=== PATIENT | male | born 1960 | race Caucasian/White ===

== ENCOUNTER 2023-02-19 11:04 | Outpatient (AMB) | payer OTHER, SELFPAY ==
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
[2023-02-19 11:12] VITALS: BP 122/77; PULSE 93; O2SAT 97; BMI 29.5
== END 2023-02-19 12:53 | disposition home or self-care (01) ==
PROVIDERS: PCP Nurse Practitioner Family; Visit Provider Internal Medicine
DX: B20 Human immunodeficiency virus [HIV] disease (principal)
CPT/HCPCS: 99213

== ENCOUNTER → 2023-02-19 11:04 | Outpatient (BNVA) | payer OTHER, SELFPAY | PROVIDERS: Visit Provider Internal Medicine | DX: B20 Human immunodeficiency virus [HIV] disease (principal) | CPT/HCPCS: 99212 ==

== ENCOUNTER 2023-03-12 15:34 | Outpatient (REF) | payer MEDICAID, SELFPAY ==
[2023-03-12 16:35] LABS: MANUAL DIFF FLAG NO
[2023-03-12 16:42] LABS: Basophils Percent Auto 0.5 % (0-2); Eosinophils Absolute Auto 0.3 X10*3/uL (0.0-0.4); Eosinophils Percent Auto 3.7 % (0-4); Hematocrit 41.9 % (42.0-52.0); Hemoglobin 14.1 g/dl (14.0-18.0); Imm Gran Abs Auto 0.03 X10*3/uL (0.00-0.03); Imm Gran Pct Auto 0.4 % (0.0-0.4); Lymphocytes Percent Auto 27.3 % (20-40); Mean Corpuscular HGB Conc 33.7 g/dl (31.0-36.0); Mean Corpuscular Hemoglobin 30.2 pg (27.0-33.0); Mean Corpuscular Volume 89.7 fL (80.0-98.0); Mean Platelet Volume 10.3 fL (9.4-12.4); Monocytes Absolute Auto 0.6 X10*3/uL (0.1-1.2); Monocytes Percent Auto 8.1 % (2-11); NRBC Pct Auto 0.5 /100WBC (0.0-0.2); Neutrophils Absolute Auto 4.4 x10*3/uL (2.0-8.3); Platelet Count 250 X10*3/uL (160-400); Red Blood Count 4.67 X10*6/uL (4.60-5.80); Red Cell Distribution Width 13.4 % (11.0-16.0); White Blood Count 7.3 X10*3/uL (4.8-10.8)
[2023-03-12 17:11] LABS: Alanine Aminotransferase 35 U/L (0-40); Albumin Level 4.4 g/dL (3.5-5.0); Alkaline Phosphatase 62 U/L (39-117); Anion Gap 11 (12-20); Aspartate Amino Transferase 24 U/L (5-37); Bilirubin Total 0.3 mg/dL (0.0-1.0); Blood Urea Nitrogen 11 mg/dL (9-16); Calcium 9.3 mg/dL (8.4-10.2); Carbon Dioxide 23 mmol/L (22-29); Chloride 107 mmol/L (96-108); Estimated Glomerular Filt Rate > 60; Glucose Random 88 mg/dL (60-115); Potassium 3.9 mmol/L (3.3-5.1); Sodium 137 mmol/L (135-145); Total Protein 7.2 g/dL (6.5-8.0)
[2023-03-12 18:13] LABS: CT PCR NOT DETECTED (Not Detect.); NG PCR NOT DETECTED (Not Detect.)
[2023-03-13 04:23] LABS: Hepatitis A Antibody IgG REACTIVE (Nonreactive); ~Hepatitis A Antibody IgG 13.39 S/CO (0.00-0.99)
[2023-03-13 04:28] LABS: HBS Num1 178.03 mIU/mL (0-7.99); HBc Num1 0.74 S/CO (0.00-0.79); Hepatitis B Core Antibody Nonreactive (Nonreactive); Hepatitis B Surface Antigen Negative (Negative); ~HepC Num1 0.12 S/CO (0.00-0.79); ~Hepatitis B Surface Antibody REACTIVE (Nonreactive); ~Hepatitis C Antibody Nonreactive (Nonreactive)
[2023-03-13 10:44] LABS: Absolute CD3 Count 1590 cells/uL (840-3060); Absolute CD4 Count 946 cells/uL (490-1740); Absolute CD8 Count 665 cells/uL (180-1170); Absolute Lymphocytes 2106 cells/uL (850-3900); CD4 CD8 Ratio 1.42 (0.86-5.00); Percent CD3 Cells 76 % (57-85); Percent CD4 Cells 45 % (30-61); Percent CD8 Cells 32 % (12-42)
[2023-03-14 13:28] LABS: HIV RNA PCR Qn Copies NOT DETECTED copies/mL (NOT DETECTED); HIV RNA PCR Qn Log Copies NOT DETECTED (NOT DETECTED); RPR Rapid Plasma Reagin NON-REACTIVE (NON-REACTIVE)
== END 2023-03-12 15:35 | disposition home or self-care (01) ==
LOC: HO.HHCL 15:34
PROVIDERS: Visit Provider Internal Medicine
DX: B20 Human immunodeficiency virus [HIV] disease (principal)
CPT/HCPCS: 0353U; 36415; 80053; 85025; 86359; 86360; 86592; 86704; 86706; 86708; 86803; 87340; 87536

== ENCOUNTER 2023-06-27 10:05 | Outpatient (AMB) | payer MEDICAID, SELFPAY ==
--- NOTE | 2023-06-27 07:49 | A.OFFVIS_ITS ---
Intake Visit Reasons: Former Smoker Allergies No Known Allergies Allergy (Verified 02/19/23 11:13) HPI HPI Former Smoker: Details: Initial visit for this 62yo former smoker with a 40PYH. Patient started smoking at age 15 for 47 years at 1ppd. He quit 8 months ago 10/2022. . Reports daily marijuana use. Denies second hand smoke exposure. Reports exposure to asbestos, diesel fumes, coal dust and soot. . Denies known family history of lung cancer. Denies personal history of cancers. Denies chest CT in last year. . Denies recent travel outside the [place]. Denies recent respiratory illness or recent hospitalization for respiratory issues. Denies testing positive for COVID. Admits receiving COVID Vaccine. x 3 . Denies fever, chills, new/worsening cough, hemoptysis, hoarseness or dysphagia. Denies significant chest pain, significant dyspnea or unintentional weight loss. Patient Lung Cancer Screening Questionnaire reviewed with patient by provider. . Shared Decision Making Completed. Patient meets criteria. Discussed in detail with patient, the risk vs benefit of LDCT screening. Patient consents to proceed with scan. Discussedand encouraged continued smoking cessation. [facility] Medical History (Updated 06/27/23 @ 10:14 by Lindsey Syed PA-C) Personal history of nicotine dependence Hearing loss Depression with anxiety Hypertension HIV (human immunodeficiency virus infection) Surgical History (Updated 06/27/23 @ 10:17 by Lindsey Syed PA-C) History of ear surgery Social History (Updated 06/27/23 @ 10:15 by Lindsey Syed PA-C) Alcohol intake: current Alcohol intake frequency: does not drink Patient Tobacco Use Status: Former Tobacco user Quit Date: 10/2022 Years Smoked: onset 15yo, 1ppd x 47yrs, 40pyh - quit 10/2022 Assessment & Plan Assessment & Plan (1) Personal history of nicotine dependence: Comment: (former smoker, onset 15yo, 1ppd x 47yrs, 40pyh - quit 10/2022) Code(s): Z87.891 - Personal history of nicotine dependence Category: Medical Plan: - SDM visit completed today in office. - Patient meets criteria for LDCT for lung cancer screening purposes and is asymptomatic. - Smoking cessation counseling offered. Patients can always call [phone]. - Will arrange for a LDCT scan of the chest for screening purposes at [facility]. - Risks, benefits, and alternatives were discussed in detail and the patient agrees to proceed. - Risks discussed include but are not limited to: radiation exposure, anxiety during testing and while awaiting results, false negatives, false positives and possibility of additional intervention such as further imaging or surgical procedures for benign disease. - Benefits are obviously detection of lung cancer at an early stage which can lead to improved outcomes. - Discussed the importance of screening program compliance with adherence to yearly LDCT scan as scheduled - or sooner interval scans for personalized screening regimen. - Discussed follow up plan. Our office will send a letter discussing results and if needed set up phone call and office visit based on CT findings. - Patient educated on results categorization and the management decisions for suspicious findings potentially found on the screening LDCT scan. Any patient with a Lung RADS score of 3 or 4 will be reviewed by a multidisciplinary team at [facility] to form a plan of action in regards to scan findings. - If further work up is warranted for a suspicious lung finding this will be followed by the Lung Cancer Screening program in conjunction with the Thoracic Surgery Department at [facility]. - A copy of the office note and LDCT will be sent to the patient's PCP - as well as documentation on any associated further plans of care. - Incidental findings on LDCT are the PCP's responsibility. These findings are indicated with an S finding on the LDCT Assessment. A note discussing the findings will be sent to the PCP who is then responsible for further management. - All questions answered.? Coding Level of Care Code Lung Cancer Screening G0296 Diagnoses Personal history of nicotine dependence Z87.891
== END 2023-06-27 10:27 | disposition home or self-care (01) ==
PROVIDERS: PCP Student in an Organized Health Care Education/Training Program; Referring Provider Student in an Organized Health Care Education/Training Program; Visit Provider Physician Assistant Medical
DX: Z87.891 Personal history of nicotine dependence (principal)
CPT/HCPCS: G0296

== ENCOUNTER 2023-06-27 10:23 | Outpatient (REF) | payer MEDICAID, SELFPAY ==
--- NOTE | ~2023-06-27 | CT_ITS ---
EXAMINATION: CT CHEST SCREENING CLINICAL INFORMATION: Personal history of nicotine dependence. The patient has a 40 pack-year history of smoking, having quit 1 year ago. COMPARISON: None available. TECHNIQUE: Multidetector volumetric CT imaging of the chest is performed on a Siemens SOMATOM Definition scanner without contrast using low dose technique. Additional 2D coronal and sagittal reformatted images and axial 3D maximum intensity projection (MIP) images are generated on the CT workstation. This CT examination was performed using dose optimization techniques as appropriate, variously including the following: *Automated exposure control. *Adjustment of mA and/or kV according to patient size (this includes techniques or standardized protocols for targeted exams where dose is matched to indication/reason for exam; i.e. extremities or head). *Use of iterative reconstruction technique. DLP: 73 mGy-cm FINDINGS: LUNGS: Emphysematous changes are seen along with bronchial thickening. A few scattered pulmonary nodules are seen with a 4 mm flat right middle lobe nodule along the minor fissure consistent with a lymph node (5:249 and 8:94). A small punctate 3 mm nodule seen in the right middle lobe in a subpleural location (5:291). Punctate calcified granuloma in the right middle lobe (5:325). MEDIASTINUM: The mediastinum is normal. CORONARY ARTERY CALCIFICATION: None visualized on this study. PLEURA: There is no pleural effusion. No pleural mass or thickening. AXILLA: No lymphadenopathy. UPPER ABDOMEN: Unremarkable. OSSEOUS STRUCTURES: Unremarkable. CT/CT lung screening IMPRESSION: Some benign pulmonary nodular densities not suspicious for malignancy. ASSESSMENT: Lung-RADS category 2: Benign. RECOMMENDATION: Routine annual low-dose CT screening in 12 months.
== END 2023-06-27 10:24 | disposition home or self-care (01) ==
LOC: HO.CT 10:23
PROVIDERS: Visit Provider Physician Assistant Medical
DX: Z12.2 Encounter for screening for malignant neoplasm of respiratory organs (principal); Z87.891 Personal history of nicotine dependence
CPT/HCPCS: 71271; G0296

== ENCOUNTER 2023-07-14 13:20 | Outpatient (AMB) | payer MEDICAID, SELFPAY ==
--- NOTE | 2023-07-14 13:23 | A.OFFVIS_ITS ---
Vital Signs 07/14/23 13:27 Height 6 ft 4 in Weight 233 lb 11.04 oz BMI 28.4 BP 141/92 H Blood Pressure Location Lt brachial Position Sitting Intake Visit Reasons: Colonoscopy Screening Intake Note: Guero presents in the office as a new patient colonoscopy screening. CC: No concerns today - just here for a colonoscopy. [employer] Consultant Required: No Allergies No Known Allergies Allergy (Verified 02/19/23 11:13) HPI HPI Colonoscopy Screening: Details: 62 year old? male here today for pre colonoscopy screening.? Patient was sent to us by his PCP.? Last colonoscopy was done 15 years ago done at [facility] in [place]. Family history of colorectal cancer maternal uncle. Had colorectal cancer.? Patient denies any gastrointestinal symptoms in the past or at present.? ? Denies history of difficulty with sedation or anesthesia in the past.? Negative for history of sleep apnea.? Denies any history of cardiac, renal, pulmonary, or hepatic disease.?? Patient has a history of hep C in the past, HIV currently undetectable taking Biktarvy.? Patient is not on any anticoagulation [facility] Medical History Personal history of nicotine dependence Hearing loss Depression with anxiety Hypertension HIV (human immunodeficiency virus infection) Surgical History (Updated 07/14/23 @ 13:27 by DIEGO Noble) Hx of colonoscopy History of ear surgery Family History (Updated 07/14/23 @ 13:27 by DIEGO Noble) Maternal Uncle Colon cancer Father Colon polyp Social History Alcohol intake: current Alcohol intake frequency: does not drink Patient Tobacco Use Status: Former Tobacco user Quit Date: 10/2022 Years Smoked: onset 15yo, 1ppd x 47yrs, 40pyh - quit 10/2022 Review of Systems Const Denies weight gain and Denies weight loss ENT Reports no additional complaints, Denies dysphagia and Denies odynophagia Card Reports no additional complaints Resp Reports no additional complaints GI Denies abdominal pain, Denies belching, Denies melena, Denies bloating, Denies change in bowel habits, Reports constipation (Occasional depending on what he eats), Denies dysphagia, Denies excessive flatus, Denies dyspepsia, Denies heartburn, Denies diarrhea, Reports loose stools (Occasional depending on what he eats), Denies nausea, Denies odynophagia and Denies vomiting Reports no additional complaints Musc Reports no additional complaints Neuro Reports no additional complaints Psych Reports no additional complaints Endo Reports no additional complaints Physical Exam Vital Signs: Last Vital Signs BP 141/92 H 07/14/23 13:27 BMI result Body Mass Index 28.4 Const General: healthy appearing, no acute distress and well developed Nutritional Appearance: well nourished Orientation/consciousness: patient oriented x3 Resp Effort & Inspection: normal respiratory effort, able to speak in complete sentences, no tracheal deviation and symmetric chest movement Auscultation: clear to auscultation bilaterally Cardio Rate: regular rate GI Inspection: Yes normal to inspection and No distended Palpation (GI): Soft to palpation, not firm, nontender and No hepatosplenomegaly present Auscultation: normal bowel sounds General: Yes no CVA tenderness Back/Spine/Pelvis Back: no CVA tenderness Skin General skin exam: elasticity normal, turgor normal and dry skin Neuro General: patient oriented x3 Psych Appearance: grossly normal Mental Status: mental status grossly normal Assessment & Plan Assessment & Plan (1) Screen for colon cancer: Code(s): Z12.11 - Encounter for screening for malignant neoplasm of colon Plan Patient denies any GI, cardiac or respiratory symptoms.? Denies any issues with anesthesia in the past.? Denies any history of sleep apnea.? ? Not on any anticoagulation therapy.? Family history of CRC.? Patient denies melena, hematochezia, unintentional weight loss or ribbon like stools.? Discussed at length the pre-procedure,? prep, diet & medications as well as what to expect prior, during and after the procedure.?? Stressed the importance of good bowel prep.? Recommended the use of Vaseline or Calmoseptine OTC & baby wipes with bowel movements to promote comfort.? ?Patient verbalizes understanding and agrees to plan of care.? He was given the opportunity to ask questions and all questions answered.? We will see him after the procedure.? Medications: New bisacodyl (Dulcolax (bisacodyl)) take 4 tabs at noon the day before your colonoscopy 20 mg (4 x 5 mg) PO ONCE 1 day 4 tabs 0RF Z12.11 - Encounter for screening for malignant neoplasm of colon polyethylene glycol 3350 (Miralax) As directed by gastroenterology department at [facility] 238 grams PO ONCE 238 grams 0RF Z12.11 - Encounter for screening for malignant neoplasm of colon Coding Level of Care Code New Pt Level 3 (19940) Diagnoses Screen for colon cancer Z12.11 Time Spent (min) 40 Comment 30 minutes spent with patient and additional 10 minutes spent reviewing his records
[2023-07-14 13:27] VITALS: BP 141/92; BMI 28.4
== END 2023-07-14 15:02 | disposition home or self-care (01) ==
PROVIDERS: PCP Student in an Organized Health Care Education/Training Program; Visit Provider Nurse Practitioner Family
DX: Z12.11 Encounter for screening for malignant neoplasm of colon (principal); Z01.818 Encounter for other preprocedural examination
CPT/HCPCS: 99203

== ENCOUNTER → 2023-07-14 13:20 | Outpatient (BNVA) | payer MEDICAID, SELFPAY | PROVIDERS: PCP Student in an Organized Health Care Education/Training Program; Visit Provider Nurse Practitioner Family | DX: Z12.11 Encounter for screening for malignant neoplasm of colon (principal) | CPT/HCPCS: 99212 ==

== ENCOUNTER 2023-10-15 10:59 | Outpatient (REF) | payer MEDICAID, SELFPAY ==
[2023-10-15 13:07] LABS: MANUAL DIFF FLAG NO
[2023-10-15 13:39] LABS: Basophils Absolute Auto 0.1 X10*3/uL (0.0-0.2); Basophils Percent Auto 0.9 % (0-2); Eosinophils Absolute Auto 0.1 X10*3/uL (0.0-0.4); Eosinophils Percent Auto 2.1 % (0-4); Hematocrit 42.4 % (42.0-52.0); Hemoglobin 13.9 g/dl (14.0-18.0); Imm Gran Abs Auto 0.05 X10*3/uL (0.00-0.03); Imm Gran Pct Auto 0.9 % (0.0-0.4); Lymphocytes Absolute Auto 1.6 X10*3/uL (1.2-4.9); Lymphocytes Percent Auto 28.3 % (20-40); Mean Corpuscular HGB Conc 32.8 g/dl (31.0-36.0); Mean Corpuscular Hemoglobin 30.2 pg (27.0-33.0); Mean Platelet Volume 10.7 fL (9.4-12.4); Monocytes Absolute Auto 0.4 X10*3/uL (0.1-1.2); Monocytes Percent Auto 7.3 % (2-11); Neutrophils Absolute Auto 3.4 x10*3/uL (2.0-8.3); Neutrophils Percent Auto 60.5 % (45-73); Platelet Count 215 X10*3/uL (160-400); Red Blood Count 4.61 X10*6/uL (4.60-5.80); Red Cell Distribution Width 13.2 % (11.0-16.0); White Blood Count 5.6 X10*3/uL (4.8-10.8)
[2023-10-15 13:41] LABS: Estimated Average Glucose 108 mg/dL; Hemoglobin A1c % 5.4 % (<6.0)
[2023-10-15 13:51] LABS: Anion Gap 13 (12-20); Blood Urea Nitrogen 12 mg/dL (9-16); Calcium 9.5 mg/dL (8.4-10.2); Carbon Dioxide 26 mmol/L (22-29); Chloride 107 mmol/L (96-108); Cholesterol 222 mg/dL (<200); Estimated Glomerular Filt Rate > 60; Glucose Random 89 mg/dL (60-115); HDL Cholesterol 72 mg/dL (>40); LDL Cholesterol Calculated 129 mg/dL (<100); Potassium 4.3 mmol/L (3.3-5.1); Sodium 142 mmol/L (135-145); Triglycerides 109 mg/dL (<150)
[2023-10-15 14:08] LABS: TSH reflex Free T4 0.63 uIU/mL (0.32-4.0)
[2023-10-15 14:10] LABS: Prostate Specific Antigen 1.68 ng/mL (<0.05-4.0)
[2023-10-17 12:43] LABS: HIV RNA PCR Qn Copies 29 copies/mL (NOT DETECTED); HIV RNA PCR Qn Log Copies 1.46 (NOT DETECTED)
[2023-10-18 14:49] LABS: Absolute CD3 Count 1272 cells/uL (840-3060); Absolute CD4 Count 775 cells/uL (490-1740); Absolute CD8 Count 520 cells/uL (180-1170); Absolute Lymphocytes 1728 cells/uL (850-3900); CD4 CD8 Ratio 1.49 (0.86-5.00); Percent CD3 Cells 74 % (57-85); Percent CD4 Cells 45 % (30-61); Percent CD8 Cells 30 % (12-42)
== END 2023-10-15 11:00 | disposition home or self-care (01) ==
LOC: HO.HHCL 10:59
PROVIDERS: PCP Internal Medicine; Referring Provider Nurse Practitioner Primary Care; Visit Provider Student in an Organized Health Care Education/Training Program
DX: Z00.00 Encounter for general adult medical examination without abnormal findings (principal); Z12.5 Encounter for screening for malignant neoplasm of prostate; B20 Human immunodeficiency virus [HIV] disease; I10 Essential (primary) hypertension
CPT/HCPCS: 36415; 80048; 80061; 83036; 84153; 84443; 85025; 86359; 86360; 87536

== ENCOUNTER 2023-11-06 16:05 | Outpatient (REF) | payer MEDICAID, SELFPAY | END 2023-11-06 16:06 | disposition home or self-care (01) | LOC: HO.LNP 16:05 | PROVIDERS: Visit Provider Internal Medicine | DX: B20 Human immunodeficiency virus [HIV] disease (principal) | CPT/HCPCS: 88112 ==

== ENCOUNTER 2023-12-29 11:31 | Day surgery (SDC) | payer MEDICAID, SELFPAY ==
[2023-12-25 13:50] VITALS: BMI 28.4
--- NOTE | 2023-12-29 09:00 | HO.ANESPROP2 ---
[facility] Active Problems Active Problems: All Active Problems Personal history of nicotine dependence (Acute) HIV (human immunodeficiency virus infection) (Acute) Past Medical History Medical History Personal history of nicotine dependence Hearing loss Depression with anxiety Hypertension HIV (human immunodeficiency virus infection) Family History Family History (Updated 07/14/23 @ 13:27 by DIEGO Noble) Maternal Uncle Colon cancer Father Colon polyp Family history of problems with anesthesia: No Surgical History Surgical History (Updated 07/14/23 @ 13:27 by DIEGO Noble) Hx of colonoscopy History of ear surgery History of Problems with Anesthesia: No Social History Social History Alcohol intake: current Alcohol intake frequency: 0-2 drinks per day Patient Tobacco Use Status: Former Tobacco user Years Smoked: onset 15yo, 1ppd x 47yrs, 40pyh - quit 10/2022 Substance Use Frequency: Daily Have you been hit, kicked, punched, or otherwise hurt by someone within the past year? If so, by whom?: No Are you DNR?: No Advance Directives: No Advance Directives Information Provided: Yes Recently lost weight without trying: No Meds Allergies Allergy/AdvReac Type Severity Reaction Status Date / Time midazolam [From Versed] AdvReac Agitated Verified 12/29/23 12:23 Home Medications ?Medication ?Instructions ?Recorded ?Confirmed ?Last Taken ?Type albuterol sulfate 90 mcg/actuation 2 puff inhalation Q6H PRN wheezing 07/14/23 Unknown History aerosol inhaler (Ventolin HFA) blood pressure test kit-large #1 ea 07/14/23 Unknown History sodium fluoride 1.1 %-potassium PO 07/14/23 Unknown History nitrate 5 % dental paste Exam Height,Weight and Vital Signs: Height 6 ft 4 in Weight 105.687 kg Airway Mallampati Class: I (edentulous) TM Dist: >3cm Neck ROM: Full Heart: rrr Lungs: cta Assessment and Plan Assessment Anesthesia Assessment: Anesthesia Plan Discussed and Chart Reviewed Final Anesthetic Review Family History of Problems with Anesthesia: No History of Problems with Anesthesia: No NPO: Yes ASA Class: II Final Preanesthetic Review: No Changes in Pt Med Stat, Meds/Allgs Chart Reviewed and Consent Obtained/Reviewed Patient Risk: Low Procedure Risk: Low Anesthetic Plan Anesthetic Plan: MAC: Disposition: Standard PACU
[2023-12-29 11:54] VITALS: RESP 16; BMI 27.3
--- NOTE | 2023-12-29 11:59 | MHC.SHP ---
Pre-Procedural Eval Section A - 24 Hr Update-Section A only Date of Service: 12/29/23 The patient is an INPATIENT: No The patient has been examined within 24 hours of the surgical procedure. The History & Physical has been completed within 30 days and I have reviewed it.: No Section B - Complete if H&P > 30 days Chief Complaint: screening, FH of colon cancer Relevant Family History (Specify if Yes): Yes Relevant Social History: Tobacco Use (former smoker) Present Medications: see Short Stay Collaborative assessment Medical History: Significant History (Personal history of nicotine dependence Hearing loss Depression with anxiety Hypertension HIV (human immunodeficiency virus infection)) History of Previous Operations: Relevant previous surgery/procedure and date(s) (History of colonoscopy) Allergies: Allergies Allergy/AdvReac Type Severity Reaction Status Date / Time No Known Allergies Allergy Verified 02/19/23 11:13 Review of Systems Sugical H&P ROS: Negative: Constitution, Cardiovascular, Respiratory and Gastrointestinal Exam Surgical H&P Exam: Normal: Heart, Normal: Lungs, Normal: Extremities and Normal: Abdomen Plan Diagnosis/Plan: Unchanged I have reviewed the history and physical and performed a pertinent physical examination on my patient. No changes have occurred unless specified. Time Spent With Patient Time: Total time managing care of this patient today ____ minutes.
[2023-12-29] MEDS: Lactated Ringers 1,000 ML 80 ML IVCONT (12:05)
[2023-12-29 13:12] VITALS: BP 113/83; PULSE 104; RESP 16; TEMP 37.1; O2SAT 95
--- NOTE | 2023-12-29 13:18 | HO.OPN-COLON ---
Colonoscopy Operative Note Operative Note Date of Service: 12/29/23 Narrative: COLONOSCOPY TILL CECUM WITH BIOPSIES, SNARE POLYPECTOMY AND HEMOCLIP PLACEMENT Pre-op diagnosis: Surveillance for colon polyps, family history of colon cancer (maternal uncle at age 51 yrs) and polyps. Post-op diagnosis:? Colon polyps, Diverticulosis Endoscopist:? Boaz Albert MD Anesthesia:?MAC Consent: Indications for the procedure and potential complications of bleeding, perforation, reaction to medications and missed diagnosis were discussed with the patient and informed consent was obtained. Instrument: Olympus CF H 190 L variable stiffness adult colonoscope Monitoring: Vital signs and clinical assessment, intermittent blood pressure monitoring, continuous EKG monitoring, Pulse oximetry and Carbon Dioxide monitoring were done throughout the procedure. Please see anesthesia flowsheet. Colon withdrawl time was 25 minutes. Procedure: The patient was placed in the left lateral decubitis position and pre-procedure medications were administered. After a digital rectal examination of the ano-rectum, the video colonoscope was inserted into the rectum and advanced through the colon to the cecum. The colonoscope was slowly withdrawn in a retrograde panoramic fashion and the colon mucosa was carefully examined including a retroflexed view of the rectum. Findings and interventions are described below. Procedure Difficulty: without difficulty Findings: Terminal Ileum: Not evaluated Cecum: A 5-6 mm diminutive appearing polyps adjacent to the appendicular orifice - removed with a cold biopsy Ascending Colon: Normal Transverse Colon: Two 6-7 mm diminutive appearing polyps - removed with a cold biopsy Descending Colon: Normal Sigmoid Colon: Two 5-6 mm diminutive appearing polyps - removed with a cold biopsy. A 10-12 mm sessile polyp at 40 cms - removed with a hot snare. Moderate diverticulosis Rectum: A 7-8 mm sessile polyp at 10 cms - removed with a hot snare. Polypectomy site was closed with 1 hemoclip. Ano-rectum: Normal Colon preparation: Good after copious irrigation. [place] Bowel Preparation Scale Right colon; 2 Transverse colon: 2 Left colon; 2 (0 = Unprepared colon segment with mucosa not seen due to solid stool that cannot be cleared. 1 = Portion of mucosa of the colon segment seen, but other areas of the colon segment not well seen due to staining, residual stool and/or opaque liquid. 2 = Minor amount of residual staining, small fragments of stool and/or opaque liquid, but mucosa of colon segment seen well. 3 = Entire mucosa of colon segment seen well with no residual staining, small fragments of stool or opaque liquid) Impression and Post Procedure Diagnosis: Colonoscopy Findings: Seven small to medium sized polyps were removed Moderate diverticulosis seen in the sigmoid colon Plan: I will send a letter with biopsy results. Repeat Colonoscopy in 3-5 years if polyps are adenomatous and 10 year if polyps are hyperplastic. Above findings were reviewed with the patient and relevant handouts were given and the discharge area.
[2023-12-29 13:28] VITALS: BP 126/93; PULSE 97; RESP 14; TEMP 36.3; O2SAT 99
== END 2023-12-29 14:08 | disposition home or self-care (01) ==
PROVIDERS: PCP Internal Medicine; Visit Provider Internal Medicine Gastroenterology
PROC: 0DJD8ZZ Inspection of Lower Intestinal Tract, Via Natural or Artificial Opening Endoscopic (ICD-10-PCS; CPT 45378; principal; 2023-12-29 12:50)
DX: Z12.11 Encounter for screening for malignant neoplasm of colon (principal); D12.5 Benign neoplasm of sigmoid colon; K62.1 Rectal polyp; K57.30 Diverticulosis of large intestine without perforation or abscess without bleeding; Z83.719 Family history of colon polyps, unspecified; I10 Essential (primary) hypertension; B20 Human immunodeficiency virus [HIV] disease; Z87.891 Personal history of nicotine dependence
CPT/HCPCS: 45385; 45380; 88305; J2003; J2704

== ENCOUNTER → 2023-12-29 11:31 | Outpatient (BNV) | payer MEDICAID, SELFPAY | PROVIDERS: PCP Internal Medicine; Visit Provider Internal Medicine Gastroenterology | DX: Z12.11 Encounter for screening for malignant neoplasm of colon (principal); Z86.0100 Personal history of colon polyps, unspecified; Z80.0 Family history of malignant neoplasm of digestive organs; D12.5 Benign neoplasm of sigmoid colon; K63.5 Polyp of colon; K62.1 Rectal polyp | CPT/HCPCS: 45380; 45385 ==

== ENCOUNTER 2024-02-12 17:37 | Outpatient (REF) | payer MEDICAID, SELFPAY ==
[2024-02-22 07:49] LABS: HPV MRNA E6/E7 Rectal DETECTED
[2024-02-22 17:32] LABS: HPV 16 RNA, Rectal NOT DETECTED; HPV 18/45 RNA Rectal NOT DETECTED
== END 2024-02-12 17:38 | disposition home or self-care (01) ==
LOC: HO.HHCLNP 17:37
PROVIDERS: Visit Provider Internal Medicine
DX: Z21 Asymptomatic human immunodeficiency virus [HIV] infection status (principal)
CPT/HCPCS: 36415; 87624; 87625; 88112

== ENCOUNTER 2024-12-10 13:35 | Outpatient (REF) | payer MEDICAID, SELFPAY ==
[2024-12-10 16:07] LABS: MANUAL DIFF FLAG NO
--- OUTSIDE RECORDS SUMMARY | 2024-12-10 16:08 | XMS_ITS | Clinical Summary ---
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 Role Phone Unavailable Primary Care Provider Unavailabl e Social History Tobacco Use Types Packs/Day Years Used Date Smoking Tobacco: Never Assessed Sex and Gender Information Value Date Recorded Sex Assigned at Not on file Legal Sex Male 11:31 AM EDT Gender Identity Not on file Sexual Orientation Not on file Plan of Treatment Health Maintenance Due Date Last Done Comments Hepatitis C Virus Screening 1961 HIV Screening 1974 DTaP/Tdap/Td Vaccines (1 - Tdap) 1980 Pneumococcal Vaccines 50+ (1 of 1 - PCV) 08/14/2011 Zoster (Shingles) Vaccine (1 of 2) 08/14/2011 COVID-19 Vaccine ( - 2023-2 5 season) 2024 RSV Vaccine 50 years and old er and Patients (1 - 1-dose 75+ series) 2036 Hepatitis B Vaccines Aged Out No long er eligible based on patient's age to complete this topic
--- OUTSIDE RECORDS SUMMARY | 2024-12-10 16:09 | XMS_ITS | Data Portability ---
Author Organization [place] [facility], Allergy Address [address] [place] [id number] Care Team Providers Care Angle Shearer Name Role Phone [facility] Primary Care Provid er Assessment Encounter Date Assessment Date Assessment LastModified by Organization Details LastModified Time 10/10/2023 10/10/2023 Patient seen for an opinion regarding mixed hearing loss. Remote history of multiple mastoid surgeries last surgery 1987. Debris removed from the right ear. Audiogram reviewed. Suggest Baha evaluation [email or web address] Not available 10/10/2023 15:21:36 12/16/2023 12/16/2023 Patient with healthy, dry right sided canal wall down mastoidectomy cavity. Audiometric testing shows severe mixed hearing loss in the right ear. The left ear is normal-appearing with high-frequency sensorineural hearing loss consistent with presbycusis. In light of his anatomic and audiologic configuration, I would recommend he consider another trial of conventional amplification prior to considering any surgically implantable technology. He is in agreement with this plan, as he wants to avoid any further surgery. I have given him a copy of his audiogram, medical clearance for amplification and instructions to contact the [facility] audiology department to discuss amplification technology in more detail. [email or web address] Not available 12/16/2023 13:35:15 Plan of Treatment Reminders Order Date Submit Date Provider Last Modified By Organization Details Last Modified Time Details Appointments None record ed. Lab None record ed. Referral None record ed. Procedures None record ed. Surgeries None record ed. Imaging None record ed. Medication Orders None record ed. Patient TargetsNo targets recorded. Patient InstructionsNo instructions recorded. Reason for Referral None Reported. Results Created Date Observation Date Name Description Value Unit Range Abnormal Flag Note LastModifiedBy Organization Detail LastModifiedTime 08/19/20 24 audio gram No observ ation record ed. [email or web address] Not Available 09/24 13:06:47 Result Notes None recorded. 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 4 15:02:19 Postmastoid ectomy complicatio n 78796076 Active 2023 LAURA HAMMOND MD [address] [facility] [address], [place], [address], [facility] - [facility] [place] 4 20:32:47 Postmastoid ectomy complicatio n 45908663 Active 2023 LAURA HAMMOND MD [address] [place], [place], [address], [place] - [facility] 4 20:33:01 Problem Notes None recorded. Procedures Surgical History Date Name Laterality Status Provider Name and Address Organization Details Recorded Time 12/16/19 24 Debridement of Mastoid Cavity right completed LAURA HAMMOND MD [address] [place],[address] [facility], [place], [address], [facility] - [facility] [place] 12/16/2023 13:26:37 10/10/19 24 Comp Audio with Tymps - 64045 & 47366 completed NEVAEH LYNN MA, CCC-A [address], [place], [address], [place] - [facility] [place] 10/10/2023 15:00:55 Mastoidectomy completed Michelle Perez [place] - [facility] 10/10/2023 13:55:55 colonoscopy completed Michelle Perez [place] - [facility] 10/10/2023 13:56:23 Imaging Results None recorded. Procedure Notes None recorded. Medical Equipment None Reported. Allergies No known drug allergies Medications Name Sig Start Date Stop Date Status Note LastModified by Organization Details LastModified Time ibuprofen 800 mg tablet TAKE 1 TABLET BY MOUTH THREE TIMES DAILY EVERY 8 HOURS NEEDED 10/09 completed Not Available Not Available Not Available ibuprofen 600 mg tablet TAKE 1 TABLET BY MOUTH EVERY 6 TO 8 HOURS NEEDED active Not Available Not Available No t Available amoxicillin 875 mg-potassiu m clavulanate 125 mg tablet TAKE 1 TABLET BY MOUTH EVERY 12 HOURS 12/15 completed Not Available Not Available Not Available Ventolin HFA 90 mcg/actuati on aerosol inhaler INHALE 2 PUFFS BY MOUTH EVERY 6 HOURS NEEDED FOR WHEEZING active Not Available Not Available No t Available oxycodone 5 mg tablet TAKE 1 TABLET BY MOUTH EVERY 6 HOURS NEEDED FOR BREAKTHRO UGH PAIN active Not Available Not Available No t Available chlorhexidi ne gluconate 0.12 % mouthwash RINSE FOR 30 SECONDS WITH A HALF OUNCE (15ml) TWICE DAILY, SPIT OUT -- DO NOT SWALLOW. IN THE MORNING and BEFORE BEDTIME active Not Available Not Available No t Available sodium fluoride 1.1 %-potassium nitrate 5 % dental paste 10/09 completed Not Available Not Available Not Available blood pressure test kit-large cuff USE TO CHECK BLOOD PRESSURE IN THE MORNING 10/09 completed Not Available Not Available Not Available Biktarvy 50 mg-200 mg-25 mg tablet TAKE 1 TABLET BY MOUTH EVERY MORNING active Not Available Not Available No t Available Vitals Date Recorded Body height Body mass index (BMI) Body weight Provider Name and Address Organization Details Last Updated DateTime 10/10/2023 193.04 cm 28 kg/m2 238291.25 g Michelle Perez [place] - [facility] 10/10/2023 13:54:38 Date Recorded Body height Body mass index (BMI) Body weight Provider Name and Address Organization Details Last Updated DateTime 12/16/2023 193.04 cm 28 kg/m2 761538.25 g Hoa Genao [place] - [facility] 12/16/2023 13:11:40 Social History None recorded. Functional Status None recorded. Mental Status None recorded. Family History Nothing Reported. Medical History No medical history recorded. Immunizations Vaccine Type Date Status Note Provider Nam e and Address Organization Details Recorded Time influenza nasal, unspecified formulation 2 completed Michelle holcomb [place] - [facility] 10/10/2023 13:55:28 Past Encounters Encounter ID Performer Location Encounter Start Date Encounter Closed Date Diagnosis/Indication Diagnosis SNOMED-CT Code Diagnosis ICD10 Code Diagnosis IMO Codes Diagnosis Note [id number] ARTEM TARANGO MD [facility] [address] [address] 10/10/2023 12:59:25 10/10/2023 16:49:02 Sensorineural hearing loss in left ear [id number] 9109 H90.A22 Audiologic al evaluation results: Right ear: Moderateto profound mixed hearing loss with good word recognitio n. Left ear: Normal/ borderline normal hearing thru 2000Hz sloping to a moderate SNHL with excellent word recognitio n. Tympanomet ry: Right Ear:Could not maintain a hermetic seal Left Ear:Type A Rec: trial with BAHA; Hearing aid for left ear Mixed cond uctive and sensorineural hearing loss of right ear [id number] 9105 H90.A31 [id number] LORA MCCLELLAN [facility] [address] [address] 10/30/2023 11:36:20 10/30/2023 13:36:44 Mixed conductive and sensorineural hearing loss of right ear 2394024372 9105 H90.A31 Sensorineu ral hearing loss in left ear 7969305366 9109 H90.A22 [id number] LAURA HAMMOND MD [facility] [address] [address] 12/16/2023 12:59:02 12/16/2023 13:34:28 Postmastoidectomy complication 53664419 H95.191 The right canal wall down mastoidect stan cavity was cleaned of accumulate d squamous debris. No signs of acute or chronic inflammati on. Would recommend yearly mastoid debridemen t with PA Mixed cond uctive and sensorineural hearing loss of right ear 2294364755 9105 H90.A31 Sensorineu ral hearing loss in left ear 4441946640 9109 H90.A22 Health Concerns Section Related Observation LastModified by Organization Detai ls LastModified Time None Recorded Concern Status LastModified by Organization Details LastModified Time None Recorded Advance Directives Directive None Recorded Payers Insurance Date Sequence Insurance Name Policy Number Policy Alvarez Covered Member ID Alvarez Member ID Guarantor Name 11/03/2024 1 [place]: [facility] Guero Larry [id number] Guero Larry Notes Date Note Type Note Provider Name and Address Organization Details Recorded Time 10/10/2023 text/html Hx of mastoid surgeries, last 1987. Tried BAHA in [place] and liked it ARTEM NIEVES MD [address] [place] [address], [phone], [facility] - 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 He tried a BAHA device 2 years ago and was in love with the sound but did not move forward at that time. He is now ready to move forward but would like to not undergo surgery due to some trouble with anesthesia that he had recently. Due to him not wanting surgery, we are unable to provide softband or soundarc services due to his insurance being medicaid. I explained this to him and that he would be able to go to [facility], [facility], or possibly down in [facility] as well. He states that [facility] has it out for him and will not let him go to these places . We are going to have to look into this. In the mean time he decided that he would like to have a consultation with Dr Hammond to talk about the surgery even though he is not ready. I am going to email cochlear to ask about the process if he were to wear a softband first if it could be exchanged or if he needs to just trial a device from a clinic to be able to hear better. I am going to keep in contact with him so that he stays informed of the answers I receive. LORA MCCLELLAN [address], [address], [place] - [facility] 10/30/2023 11:44:38 12/16/2023 text/html Patient with a history of prior otologic surgery at an outside institution in the past. He has a right sided canal wall down mastoidectomy cavity. He has a severe mixed hearing loss in the right ear and a high-frequency sensorineural hearing loss on the left. He tried a Baha demo in [place] and liked what he heard. Patient seeking solutions for treatment of his hearing loss. He apparently tried a hearing aid for the right ear for years ago and they did not work . Patient has recently had some issues with complications from anesthesia and has told our audiology department in the past that he is not willing to have surgery but he was sent to me to discuss this as an alternative. LAURA HAMMOND MD [address] [facility],[place] [address], [place], [address], [place] - [facility] 12/16/2023 13:37:43
[2024-12-10 16:17] LABS: Hematocrit 41.4 % (42.0-52.0); Hemoglobin 13.7 g/dl (14.0-18.0); Imm Gran Abs Auto 0.02 X10*3/uL (0.00-0.03); Imm Gran Pct Auto 0.3 % (0.0-0.4); Lymphocytes Absolute Auto 1.6 X10*3/uL (1.2-4.9); Mean Corpuscular HGB Conc 33.1 g/dl (31.0-36.0); Mean Corpuscular Hemoglobin 29.3 pg (27.0-33.0); Mean Corpuscular Volume 88.5 fL (80.0-98.0); NRBC Abs Auto 0.000 X10*3/uL (0.0-0.012); NRBC Pct Auto 0.0 /100WBC (0.0-0.2); Platelet Count 263 X10*3/uL (160-400); Red Blood Count 4.68 X10*6/uL (4.60-5.80); White Blood Count 7.0 X10*3/uL (4.8-10.8)
[2024-12-10 17:28] LABS: Alanine Aminotransferase 31 U/L (0-40); Albumin Level 4.7 g/dL (3.5-5.0); Alkaline Phosphatase 80 U/L (39-117); Anion Gap 13 (12-20); Aspartate Amino Transferase 29 U/L (5-37); Blood Urea Nitrogen 13 mg/dL (9-16); Calcium 9.1 mg/dL (8.4-10.2); Carbon Dioxide 25 mmol/L (22-29); Chloride 108 mmol/L (96-108); Cholesterol 198 mg/dL (<200); Estimated Glomerular Filt Rate > 60; HDL Cholesterol 71 mg/dL (>40); Potassium 4.1 mmol/L (3.3-5.1); Sodium 142 mmol/L (135-145); Total Protein 7.1 g/dL (6.5-8.0); Triglycerides 74 mg/dL (<150)
[2024-12-10 18:21] LABS: Reflex LDLD? No
[2024-12-11 10:18] LABS: ~HepC Num1 0.10 S/CO (0.00-0.79); ~Hepatitis C Antibody Nonreactive (Nonreactive)
[2024-12-11 14:14] LABS: HIV RNA PCR Qn Copies 116 copies/mL (NOT DETECTED); HIV RNA PCR Qn Log Copies 2.06 (NOT DETECTED)
[2024-12-13 10:28] LABS: TS Negative Control Passed; TS Panel A 0; TS Panel B 0; TS Positive Control Passed; TSpotTB Negative (Negative)
[2024-12-16 11:49] LABS: Absolute CD3 Count 1217 cells/uL (840-3060); Absolute CD8 Count 505 cells/uL (180-1170); Percent CD3 Cells 79 % (57-85); Percent CD8 Cells 33 % (12-42)
== END 2024-12-10 13:36 | disposition home or self-care (01) ==
LOC: HO.HHCL 13:35
PROVIDERS: Referring Provider Internal Medicine; Visit Provider Internal Medicine
DX: Z21 Asymptomatic human immunodeficiency virus [HIV] infection status (principal); Z11.1 Encounter for screening for respiratory tuberculosis; Z11.59 Encounter for screening for other viral diseases; Z11.3 Encounter for screening for infections with a predominantly sexual mode of transmission
CPT/HCPCS: 36415; 80053; 80061; 85025; 86359; 86360; 86481; 86592; 86803; 87536

== ENCOUNTER 2025-01-17 12:03 | Outpatient (REF) | payer MEDICAID, SELFPAY ==
--- OUTSIDE RECORDS SUMMARY | 2025-01-18 15:48 | XMS_ITS | Clinical Summary ---
Author Organization [facility] Address [address] [place] [address] Care Team Providers Care Hr Business Partner Name Role Phone Unavailable Primary Care Provider [...]
== END 2025-01-17 12:04 | disposition home or self-care (01) ==
LOC: HO.HHCLNP 12:03
PROVIDERS: Visit Provider Nurse Practitioner Family
DX: S81.009A Unspecified open wound, unspecified knee, initial encounter (principal); X58.XXXA Exposure to other specified factors, initial encounter
CPT/HCPCS: 87070; 87077; 87186; 87205